=== PATIENT | male | born 1970 | race Caucasian/White ===

== ENCOUNTER 2018-09-26 15:00 | Emergency (ER) | payer MEDICAID ==
[~2018-09-26] VITALS: Ht 180.3 cm; Wt 91.5 kg
[2018-09-26 15:02] VITALS: BP 146/95
== END 2018-09-26 17:03 | disposition home or self-care (01) ==
LOC: ED 16:45
DX: S71.152A Open bite, left thigh, initial encounter (principal); S91.052A Open bite, left ankle, initial encounter; S81.852A Open bite, left lower leg, initial encounter; Z20.3 Contact with and (suspected) exposure to rabies; Z88.5 Allergy status to narcotic agent; W54.0XXA Bitten by dog, initial encounter; Y93.89 Activity, other specified; Y92.410 Unspecified street and highway as the place of occurrence of the external cause; Y99.8 Other external cause status
CPT/HCPCS: 90375; 90471; 90472; 90675; 90715; 96372; 99283